=== PATIENT | female | born 1985 | race Two or more races ===

== ENCOUNTER 2016-09-16 13:56 | Emergency (ER) | payer OTHER ==
[~2016-09-16] VITALS: Ht 167.6 cm; Wt 64.0 kg
[2016-09-16 14:11] VITALS: BP 118/67
--- NOTE | 2016-09-16 14:40 | PHYS DOC ---
Past Medical History Past Medical History: No Pertinent History Past Surgical History: No Surgical History Additional Information: nonsmoker Alcohol Use: None Drug Use: None Adult General Chief Complaint Chief Complaint: Congestion HPI HPI Patient is a 30 year old female who presents with cough and congestion for 5 days. She has sore throat and a hoarse voice. She reports nasal congestion and subjective fever at home. She denies difficulty breathing, otalgia, or abdominal pain. She is 25 weeks . She reports positive movement. She has not taken any quty-zus-xeozuxe medications for her symptoms. She does not have a PCP. She has been seen at the [facility] for care but requests referral to an OB doctor at this hospital. The patient does not speak Green[place]ic. Her brother translates. Review of Systems Review of Systems Constitutional: Reports subjective fever. Eyes: Denies change in visual acuity, redness, or eye pain. [] HENT: Denies ear pain. Reports sore throat and nasal congestion. Respiratory: Denies shortness of breath. Reports nonproductive cough. Cardiovascular: Denies chest pain, palpitations or edema. [] GI: Denies abdominal pain, nausea, vomiting, bloody stools or diarrhea. [] : Denies dysuria, hematuria or urinary frequency. [] Musculoskeletal: Denies back pain or joint pain. [] Integument: Denies rash or skin lesions. [] Neurologic: Denies headache, focal weakness or sensory changes. [] Endocrine: Denies polyuria or polydipsia. [] Psych: Denies anxiety or depression. [] All systems reviewed and negative unless otherwise stated in the HPI. Physical Exam Physical Exam Constitutional: Well developed, well nourished, no acute distress, non-toxic appearance. [] HENT: Normocephalic, atraumatic, bilateral external ears normal, oropharynx moist, no oral exudates, nose normal. Bilateral TMs are without erythema or bulging. There is mild posterior pharyngeal erythema without tonsillar edema. There is purulent nasal drainage in the posterior pharynx. Bilateral nasal turbinates are mildly swollen and erythematous. Eyes: PERRLA, EOMI, conjunctiva normal, no discharge. [] Neck: Normal range of motion, no tenderness, supple, no stridor. [] Cardiovascular: Heart rate regular rhythm, no murmur [] Lungs & Thorax: Bilateral breath sounds clear to auscultation without wheezes, rales, or rhonchi. Skin: Warm, dry, no erythema, no rash. [] Neurologic: Alert and oriented X 3, normal motor function, normal sensory function, no focal deficits noted. [] Psychologic: Affect normal, judgement normal, mood normal. [] Current Patient Data Vital Signs Vital Signs Date Time Temp Pulse Resp B/P Pulse Ox O2 Delivery O2 Flow Rate FiO2 09/16/16 14:11 98.2 91 16 98 Room Air 98.2 Lab Values Rapid strep negative EKG EKG [] Radiology/Procedures Radiology/Procedures [] Course & Med Decision Making Course & Med Decision Making Pertinent Labs and Imaging studies reviewed. (See chart for details) [] Dragon Disclaimer Dragon Disclaimer This electronic medical record was generated, in whole or in part, using a voice recognition dictation system. Departure Departure Impression: Primary Impression: URI (upper respiratory infection) Disposition: HOME, SELF-CARE Condition: STABLE Referrals: MARY PICHARDO Jr, MD Patient Instructions: Medicines During , and Medications, Mava-fj-Mnor, Upper Respiratory Infection, Adult, Irxj-qk-Zlew Additional Instructions: Your strep test was negative today. You appear to have a viral upper respiratory infection. Please use the prescribed nasal spray daily to help with your symptoms. Please follow up with the OB doctor listed below for care. Return to the emergency department if you have high fever, difficulty breathing , difficulty swallowing, abdominal pain, vaginal bleeding, or other new or concerning symptoms. Scripts Fluticasone Propionate (Flonase Allergy Relief)9.9 Ml [place].susp2 Sprays NS DAILY #1 BOTTLE Prov:LESLIE FAM 09/16/16 Problem Qualifiers Primary Impression: URI (upper respiratory infection) URI type: unspecified viral URI Qualified Code: J06.9 - Acute upper respiratory infection, unspecified LESLIE FAM Sep 16, 2016 14:40
[2016-09-16] MEDS ORDERED: FLUT9.9S NS (14:58)
[2016-09-17 08:40] LABS: NEGATIVE OBC STREP NEG; POSITIVE OBC STREP POS
== END 2016-09-16 15:15 | disposition home or self-care (01) ==
LOC: ER 13:56
DX: O99.512 Diseases of the respiratory system complicating pregnancy, second trimester (principal); J06.9 Acute upper respiratory infection, unspecified; Z3A.25 25 weeks gestation of pregnancy
CPT/HCPCS: 87070; 87880; 99283

== ENCOUNTER 2016-11-05 03:09 | Inpatient (IN) | payer OTHER ==
[~2016-11-05] VITALS: Ht 160 cm; Wt 66.2 kg
[2016-11-05] VITALS (7 sets, daily range): BP systolic 100–123; BP diastolic 56–75
[~2016-11-05 03:09] MED LIST: FLUT9.9S NS
[2016-11-05] MEDS ORDERED: IV RINGERS,LACTATED 1000ML 1,000 ML IV SCH ×2 (03:30→03:36)
[2016-11-05] MEDS ORDERED: ONDANSETRON PF 4 MG/2 ML VIAL. IV PRN (03:45)
[2016-11-05] MEDS ORDERED: FENTANYL PF 100 MCG/2 ML VIAL. IV PRN (03:45)
[2016-11-05] MEDS ORDERED: LIDOCAINE 1% PF 30 ML VIAL. INJ PRN (03:45)
[2016-11-05] MEDS ORDERED: TERBUTALINE 1 MG/ML VIAL. SQ PRN (03:45)
[2016-11-05] MEDS ORDERED: 0.9 % SODIUM CHLORIDE 10 ML DISP.SYRIN. IV PRN ×3 (03:45→15:45)
[2016-11-05] MEDS ORDERED: IBUPROFEN 600 MG TABLET. PO PRN (03:45)
[2016-11-05 05:15] LABS: HEMATOCRIT 36.1 % (36.0-47.0); HEMOGLOBIN 11.7 g/dL (12.0-15.5); RED CELL DISTRIBUTION WIDTH 13.2 % (11.5-14.5)
[2016-11-05] MEDS: BUTORPHANOL 2 MG VIAL. IV PRN ×2 (05:50→13:36)
[2016-11-05] MEDS: OXYTOCIN 30 UNIT/500 ML PREMIX 500 ML IV PRN ×5 (09:22→23:21)
[2016-11-05] MEDS ORDERED: METHYLERGONOVINE MALEATE 0.2 MG/ML VIAL. IM ONE ×4 (09:26→12:29)
[2016-11-05] MEDS ORDERED: DIPHENHYDRAMINE HCL 25 MG CAPSULE PO PRN ×2 (10:15→15:45)
[2016-11-05] MEDS ORDERED: PHENYLEPH/MINERAL OIL/PETROLAT RECTAL OINTMENT 28GM TUBE. RC PRN ×2 (10:15→15:45)
[2016-11-05] MEDS ORDERED: ZOLPIDEM 5 MG TABLET. PO PRN ×2 (10:15→15:45)
[2016-11-05] MEDS ORDERED: OXYCODONE/APAP 5/325 TABLET. PO PRN ×2 (10:15→15:45)
[2016-11-05] MEDS ORDERED: ACETAMINOPHEN 325 MG TABLET. PO PRN ×2 (10:15→15:45)
[2016-11-05] MEDS ORDERED: SIMETHICONE 80 MG TAB.CHEW PO PRN ×2 (10:15→15:45)
[2016-11-05] MEDS ORDERED: MAG HYDROX/ALUMINUM HYD/SIMETH 30 ML ORAL.SUSP PO PRN ×2 (10:15→15:45)
[2016-11-05] MEDS ORDERED: DOCUSATE SODIUM 100 MG CAPSULE PO PRN ×2 (10:15→15:45)
[2016-11-05] MEDS ORDERED: OXYTOCIN 30 UNIT/500 ML PREMIX 500 ML IV PRN ×2 (10:15→15:45)
[2016-11-05] MEDS ORDERED: HYDROCORTISONE 1% TOPICAL OINTMENT 30GM TUBE. TP PRN ×2 (10:15→15:45)
[2016-11-05] MEDS ORDERED: BENZOCAINE 20% TOPICAL AEROSOL SPRAY 57GM CAN. TP PRN ×2 (10:15→15:45)
[2016-11-05] MEDS ORDERED: MAGNESIUM HYDROXIDE 2,400 MG/30 ML ORAL.SUSP. PO PRN ×2 (10:15→15:45)
[2016-11-05] MEDS ORDERED: MMR per PROTOCOL. MC PRN ×2 (10:15→15:45)
--- NOTE | 2016-11-05 10:15 | HP ---
ADMIT DATE: 11/05/2016 CHIEF COMPLAINT AND HISTORY OF PRESENT ILLNESS: This patient is a 31-year-old female who is a primigravida, EDC 11/11/2016 is a ____ patient and seen by ____ one time and comes in to the hospital with a history of having contractions and also patient in active labor. At the time of admission to the hospital, her cervix was dilated to about 3-4 cm and vertex presenting, membranes intact. The patient in labor. OBJECTIVE: VITAL SIGNS: Stable. HEAD, EYES, EARS, NOSE AND THROAT: Exam within normal limits. LUNGS: Clear. HEART: Sounds regular sinus rhythm. ABDOMEN: A 39 weeks size uterus. heart tones of 148 per minute, vertex presenting. PELVIC: Shows cervix 3-4 cm dilated, membranes intact and the patient in labor. DIAGNOSIS: Primigravida 39 weeks in active labor. PLAN: Vaginal delivery. SIOBHAN ARMSTRONG MD DR: DANIELA/clemente JOB#: [id number] / [id number]
--- NOTE | 2016-11-05 10:35 | LDN ---
DATE OF DELIVERY: This patient is a 31-year-old patient, who is admitted to the hospital with a history of having contractions. She is a 1, para 0, EDC 11/11/2016, was seen by ____ one time in the office for care and she did have active labor. At the time of admission to the hospital, she was dilated to about 2-4 cm and membranes intact and she did have a normal course of labor and got to complete dilatation, had a spontaneous vaginal delivery of a live female weighing 6 pounds 13 ounces, delivered on 11/05/2016 at 9:24 a.m. with score of 8 and 8. The baby did have cord around the neck, which was very tight and this was cut before delivery of the head and also, the baby had cord around the body, which was released. Cord blood was taken. Placenta removed spontaneously. She did have some bleeding after removal of the placenta and she was given Pitocin as well as Methergine to contract the uterus, and she did have a midline episiotomy. This was sutured with 2-0 chromic catgut sutures without any problem, and the mother tolerated the delivery well. No complications. ESTIMATED BLOOD LOSS: 400 mL. Baby is referred to medical technologist clinical for further care and treatment. SIOBHAN ARMSTRONG MD DR: DANIELA/clemente JOB#: [id number] / [id number]
[2016-11-05] MEDS: IBUPROFEN 600 MG TABLET. PO SCH (11:57)
[2016-11-05 13:28] LABS: HEMATOCRIT 30.4 % (36.0-47.0); HEMOGLOBIN 9.9 g/dL (12.0-15.5); RED BLOOD COUNT 3.35 x10^6/uL (3.50-5.40); RED CELL DISTRIBUTION WIDTH 13.5 % (11.5-14.5)
[2016-11-05] MEDS ORDERED: IV NORMAL SALINE 1000ML BAG 1,000 ML IV ONE (14:00)
[2016-11-05] MEDS ORDERED: DEXAMETHASONE SOD PHOS 20 MG/5 ML VIAL. ONE (14:28)
[2016-11-05] MEDS ORDERED: PROPOFOL 20 ML IV ONE (14:28)
[2016-11-05] MEDS ORDERED: ONDANSETRON PF 4 MG/2 ML VIAL. ONE (14:28)
[2016-11-05] MEDS ORDERED: FAMOTIDINE 20 MG/2 ML VIAL ONE (14:28)
[2016-11-05] MEDS ORDERED: LIDOCAINE 2% 100 MG/5 ML DISP.SYRIN. ONE (14:28)
[2016-11-05] MEDS ORDERED: FENTANYL PF 100 MCG/2 ML VIAL. ONE (14:29)
[2016-11-05] MEDS ORDERED: SUCCINYLCHOLINE 200 MG/10 ML VIAL. ONE (14:29)
[2016-11-05] MEDS ORDERED: MISOPROSTOL 200 MCG TABLET ONE (14:46)
[2016-11-05] MEDS ORDERED: OXYTOCIN 10 UNIT/ML VIAL. ONE ×2 (14:46→15:50)
[2016-11-05] MEDS ORDERED: CEFAZOLIN 2GM PREMIX 50 ML IV ONE ×2 (14:57→15:09)
[2016-11-05] MEDS ORDERED: MISOPROSTOL 200 MCG TABLET VG ONE (15:10)
[2016-11-05] MEDS ORDERED: PHENYLEPHRINE in 0.9% NACL PF 1 MG/10 ML DISP.SYRIN. IV ONE (15:11)
[2016-11-05] MEDS ORDERED: SEVOFLURANE 31 TO 60 MINUTES. IH ONE (15:17)
[2016-11-05] MEDS ORDERED: IV DEXTROSE 5%-LACT RINGERS 1,000 ML IV SCH (16:00)
[2016-11-05] MEDS ORDERED: IBUPROFEN 600 MG TABLET. PO SCH (18:00)
--- NOTE | 2016-11-05 19:37 | OP ---
DATE OF SURGERY: 11/05/2016 PREOPERATIVE DIAGNOSIS: bleeding. POSTOPERATIVE DIAGNOSIS: bleeding. OPERATION PERFORMED: D and C, suction curettage. DESCRIPTION OF PROCEDURE: The patient was taken to the operating room. Under general anesthesia, she was placed in a dorsal lithotomy position. Perineum is prepped and draped in the usual manner. Weighted speculum inserted in the posterior vaginal wall. Anterior lip of the cervix held with a tenaculum and ring forceps is used to remove all the clots, and a medium-sized curette is also used to curette the endometrial cavity and number size 8 suction-tip cannula is used to suction the uterus. All the curettings obtained are ____ for pathological examination. At the end of the curettage, speculum tenaculum is removed. The patient was sent to the recovery room in good condition. No complications encountered at the time of the procedure. Estimated blood loss about 200 mL. She did receive 20 units of Pitocin during the time of the D and C and also 800 ____ Cytotec inserted into the uterus for hemostasis. The patient tolerated the procedure. No complications. SIOBHAN ARMSTRONG MD DR: DANIELA/clemente JOB#: [id number] / [id number]
[2016-11-06] VITALS (14 sets, daily range): BP systolic 89–103; BP diastolic 42–59
[2016-11-06] MEDS: FERROUS SULFATE 325 MG TABLET PO SCH (08:00)
[2016-11-06] MEDS ORDERED: FERROUS SULFATE 325 MG TABLET PO SCH (08:00)
--- NOTE | 2016-11-06 12:11 | PDOC ---
SUBJECTIVE Subjective Patient feeling better No vaginal bleeding OBJECTIVE Objective Hg 6 Patient looks pale Vital Signs Vital Signs Date Time Temp Pulse Resp B/P Pulse Ox O2 Delivery O2 Flow Rate FiO2 11/06/16 11:50 98.4 79 18 89/43 98.4 11/06/16 06:20 98.3 70 18 91/42 98.3 11/06/16 02:30 98.4 98.4 11/05/16 23:11 100.2 85 16 100/69 100.2 11/05/16 18:42 70 18 108/63 11/05/16 18:05 72 18 104/56 11/05/16 17:45 87 120/66 11/05/16 17:20 84 20 115/70 11/05/16 17:05 99.1 67 20 115/70 100 99.1 11/05/16 16:41 100.4 66 20 132/57 99 Room Air 100.4 11/05/16 16:26 100.4 60 18 117/61 99 Room Air 100.4 11/05/16 16:11 99.2 60 18 116/66 100 Simple Mask 6 99.2 11/05/16 15:56 99.2 64 18 103/54 100 Simple Mask 6 99.2 11/05/16 15:42 99.2 69 18 110/59 100 Simple Mask 6 99.2 11/05/16 15:42 Mask 6 11/05/16 13:36 18 I & O Intake and Output 11/06/16 07:00 Intake Total 1300 ml Balance 1300 ml Intake Oral 300 ml Other 1000 ml # Voids 3 # Bowel Movements 1 PHYSICAL EXAM Physical Exam Abdomen soft uterus firm Lochia normal ASSESSMENT/PLAN Assessment/Plan Post bleeding Will give her 2 units of Packed cells BT today Problems: COMMENT Lab Laboratory Tests Test 11/05/16 13:15 11/06/16 05:10 White Blood Count 20.0x10^3/uL (4.0-11.0) Red Blood Count 3.35x10^6/uL (3.50-5.40) Hemoglobin 9.9g/dL (12.0-15.5) Hematocrit 30.4% (36.0-47.0) 18.3% (36.0-47.0) Mean Corpuscular Volume 91fL (79-100) Mean Corpuscular Hemoglobin 30pg (25-35) Mean Corpuscular Hemoglobin Concent 33g/dL (31-37) Red Cell Distribution Width 13.5% (11.5-14.5) Platelet Count 144x10^3/uL (140-400) SIOBHAN ARMSTRONG MD Nov 06, 2016 12:11
[2016-11-07 05:58] VITALS: BP 94/57
[2016-11-07] MEDS: FERROUS SULFATE 325 MG TABLET PO SCH (08:36)
[2016-11-07] MEDS: IBUPROFEN 600 MG TABLET. PO SCH (08:36)
--- NOTE | 2016-11-07 08:54 | PDOC ---
SUBJECTIVE Subjective Patient doing fine OBJECTIVE Objective Abdomen soft Uterus firm Received 2 units of BT Vital Signs Vital Signs Date Time Temp Pulse Resp B/P Pulse Ox O2 Delivery O2 Flow Rate FiO2 11/07/16 05:58 97.9 91 20 94/57 98 Room Air 97.9 11/06/16 23:10 98.5 99 16 97/58 98.5 11/06/16 17:05 98.6 84 20 100/55 100 Room Air 98.6 11/06/16 16:05 98.1 78 16 97/53 98.1 11/06/16 14:45 98.7 20 18 101/56 98.7 11/06/16 14:20 98.6 76 18 102/59 98.6 11/06/16 14:03 99.1 87 20 103/54 99.1 11/06/16 14:00 87 20 103/54 11/06/16 13:40 99.0 75 20 102/51 99.0 11/06/16 13:02 98.4 20 18 100/56 98.4 11/06/16 12:30 98.2 70 18 101/51 98.2 11/06/16 12:05 97.7 73 20 96/49 97.7 11/06/16 11:50 98.4 79 18 89/43 98.4 11/06/16 11:30 98.4 79 18 89/43 98.4 I & O Intake and Output 11/07/16 07:00 Intake Total 650 ml Balance 650 ml Blood Product IV Normal Saline Flush 650 ml PHYSICAL EXAM Physical Exam No vaginal bleeding Doing ok ASSESSMENT/PLAN Assessment/Plan Will dismiss to home Return to office in 2 weeks Problems: COMMENT Lab Laboratory Tests Test 11/06/16 20:48 Hematocrit 25.7% (36.0-47.0) SIOBHAN ARMSTRONG MD Nov 07, 2016 08:54
[2016-11-07 11:45] VITALS: BP 100/56
--- NOTE | 2016-11-07 14:57 | PATHOLOGY ---
PATHOLOGY REPORT * * * * * * * * FINAL DIAGNOSIS: Uterine contents, suction D and C: - Blood clot containing segments of endocervical tissue showing focal marked active chronic inflammation, squamous metaplasia, and endocervical microglandular hyperplasia. COMMENT: The entire specimen is submitted for histologic evaluation. There are no chorionic villi identified. (JPM:; d/t: 11/07/16) REPORT ELECTRONICALLY SIGNED BY: Isaias Franco M.D. DATE/TIME: 11/07/2016 14:52 * * * * * * * * GROSS PATHOLOGY: The specimen is received in formalin labeled "Nany Galvin, retained placental tissue". Received is a moderate amount of red-brown to light velez soft tissue admixed with blood coagulum measuring 6.6 x 2.7 x 0.6 cm in aggregate dimensions. or embryonic tissue is not grossly identified. Vesicular structures are absent. The specimen is submitted entirely in cassettes A1 through A6. (CAA; 11/06/2016) INITIAL CPT CODE(S): A; 51504 Professional services performed [place] [facility] [address] Technical services performed by [facility] at [address] [place] [address] [address] [address]. SPECIMEN(S) RECEIVED: A.Retained placental tissues CLINICAL HISTORY: Retained placenta PATIENT: NANY GALVIN /AGE: 209/21/1985 (Age: 31) PATIENT #: [id number] ALT CASE #: SPECIMEN COLLECTION DATE: 11/05/2016 SPECIMEN RECEIVED DATE: 11/06/2016 [facility] - [address] [place] [address] - PHONE: [phone] * * * END OF REPORT * * *
== END 2016-11-07 12:45 | disposition home or self-care (01) | DRG 774 ==
LOC: 3 SO LND 03:09 → OBSVTOIN 03:09 → 3 NORTH 16:43
PROVIDERS: ADMIT Obstetrics & Gynecology; ATTEND Obstetrics & Gynecology
PROC: 0W8NXZZ Division of Female Perineum, External Approach (ICD-10-PCS; 2016-11-05)
PROC: 10D07Z8 Extraction of Products of Conception, Other, Via Natural or Artificial Opening (ICD-10-PCS; 2016-11-05)
PROC: 10E0XZZ Delivery of Products of Conception, External Approach (ICD-10-PCS; principal; 2016-11-05 15:00)
PROC: 30233N1 Transfusion of Nonautologous Red Blood Cells into Peripheral Vein, Percutaneous Approach (ICD-10-PCS; 2016-11-06)
DX: O69.81X0 Labor and delivery complicated by cord around neck, without compression, not applicable or unspecified (principal); O72.1 Other immediate postpartum hemorrhage; Z37.0 Single live birth; Z3A.39 39 weeks gestation of pregnancy
CPT/HCPCS: 36415; 85014; 85027; 86593; 86850; 86900; 86901; 86920; 88305; J0330; J0690; J1100; J2210; J2370; J2405; J2590; J2704; J3010; J7030; J7120; P9016; S0028

== ENCOUNTER → 2018-07-25 | Outpatient (CLI) | payer OTHER ==
--- NOTE | 2018-07-26 10:19 | KCIC ---
OB ultrasound greater than 14 weeks 07/25/2018 Clinical History: survey. Technique: A real-time ultrasound examination of the gravid uterus was performed. Multiple images were obtained. Findings: No previous studies are available for comparison. There is a single living IUP. The fetus is in a cephalic position. cardiac and somatic activity is seen. The heart rate is 143 beats per minutes. The maternal cervix is closed. It measures 5.1 cm in length. The placenta is anterior. No abnormality is seen. The amniotic fluid volume is within normal limits. Neither maternal ovary is visualized. The following measurements were obtained: BPD 5.65cm 23 weeks to days HC 21.62 cm 23weeks 5 days AC 19.17 cm 23weeks 6 days FL 4.13 cm 23 weeks 3 days The estimated gestational age by ultrasound is 23 weeks 4 days plus or minus a standard deviation of 10 days. The estimated date of delivery by ultrasound is 11/17/2018. No abnormality is seen. Specifically the stomach, bladder, kidneys, 3 vessel cord and cord insertion, four-chamber heart, cisterna magna, cerebellum, nose/mouth, spine and extremities are well-visualized and within normal limits. Impression: Single living IUP with an estimated gestational age by ultrasound of 23 weeks 4 days +/- a standard deviation of 10 days. The estimated date of delivery by ultrasound is 11/17/2018. Electronically signed by: Delmar Esparza MD (07/26/2018 10:15 AM) [facility]
== END | disposition home or self-care (01) ==
LOC: KCIC US 10:05
PROVIDERS: ATTEND Obstetrics & Gynecology
DX: Z34.82 Encounter for supervision of other normal pregnancy, second trimester (principal); Z3A.23 23 weeks gestation of pregnancy
CPT/HCPCS: 76805

== ENCOUNTER 2018-11-14 01:44 | Inpatient (IN) | payer OTHER ==
[~2018-11-14] VITALS: Ht 162.6 cm; Wt 66.2 kg
[2018-11-14] MEDS ORDERED: IV RINGERS,LACTATED 1000ML 1,000 ML IV SCH ×2 (02:00→02:15)
[2018-11-14] MEDS ORDERED: ACETAMINOPHEN 500 MG TABLET PO PRN (02:00)
[2018-11-14 02:14] VITALS: BP 117/67
[2018-11-14] MEDS ORDERED: TERBUTALINE 1 MG/ML VIAL. SQ PRN (02:15)
[2018-11-14] MEDS ORDERED: 0.9 % SODIUM CHLORIDE 10 ML DISP.SYRIN. IV PRN ×2 (02:15→04:15)
[2018-11-14] MEDS ORDERED: IBUPROFEN 400 MG TABLET. PO PRN (02:15)
[2018-11-14] MEDS ORDERED: fentaNYL PF VIAL 100 MCG/2 ML VIAL IV PRN ×2 (02:15)
[2018-11-14] MEDS ORDERED: OXYTOCIN 30 UNIT/500 ML PREMIX 500 ML IV PRN ×3 (02:15→04:15)
[2018-11-14] MEDS ORDERED: ONDANSETRON PF 4 MG/2 ML VIAL. IV PRN (02:15)
[2018-11-14] MEDS ORDERED: LIDOCAINE 1% PF 30 ML VIAL. INJ PRN (02:15)
[2018-11-14] MEDS ORDERED: PENICILLIN G K 5,000,000 UNIT in IV DEXTROSE 5% 100ML 100 ML IV ONE (02:30)
[2018-11-14 02:35] LABS: BASO # 0.1 x10^3/uL (0.0-0.2); BASO % 1 % (0-3); EOS # 0.1 x10^3/uL (0.0-0.7); EOS % 1 % (0-3); HEMATOCRIT 38.6 % (36.0-47.0); HEMOGLOBIN 13.1 g/dL (12.0-15.5); LYMPH # 1.9 x10^3/uL (1.0-4.8); LYMPH % 18 % (24-48); MEAN CORPUSCULAR HEMOGLOBIN 31 pg (25-35); MEAN CORPUSCULAR HGB CONC 34 g/dL (31-37); MEAN CORPUSCULAR VOLUME 92 fL (79-100); MONO # 0.9 x10^3/uL (0.0-1.1); MONO % 9 % (0-9); NEUT # 7.7 x10^3uL (1.8-7.7); NEUT % 73 % (31-73); PLATELET COUNT 189 x10^3/uL (140-400); RED BLOOD COUNT 4.17 x10^6/uL (3.50-5.40); RED CELL DISTRIBUTION WIDTH 12.8 % (11.5-14.5); WHITE BLOOD COUNT 10.6 x10^3/uL (4.0-11.0)
[2018-11-14] MEDS ORDERED: OXYTOCIN PREMIX 30 UNIT/500 ML BAG. IV ONE (03:25)
--- NOTE | 2018-11-14 04:03 | PDOC1 ---
OB - History Hx of Present Care: Good Care Ultrasounds: Normal mid trimester US Obstetrical Complications: None Medical Complications: None Past Family/Social History * Past Medical, Surgical, Family and Obstetric Histories reviewed from chart. Rubella: Immune RPR/VDRL: Negative GBS Status: Positive HBsAG: Negative OB - Chief Complaint & HPI Date of Admission: Date of Admission: Nov 14, 2018 at 01:44 Chief Complaint/History : 2 Para: 1 EGA: 39 Reason for admission: active labor Admission Nurse Assessment Rev: Yes OB - Admission Exam Physical Exam Vitals: VS - Last 72 Hours, by Label Date Time Temp Pulse Resp B/P (MAP) Pulse Ox O2 Delivery O2 Flow Rate FiO2 11/14/18 02:14 97.9 72 18 117/67 (84) Room Air 97.9 HEENT: Normal Heart: Regular Rate Lungs: Clear Abdomen: Gravid, Non tender, Soft Extremities: Edema Reflexes: Normal Cervical Dilatation: 5cm Effacement: 100% Station: -1 Membranes: Intact Heart Rate: Normal Accelerations: Accelerations Present Decelerations: No decelerations Contractions on Admission: < 5 Minutes Apart Intensity: Firm Text A: 39 wks IUP Active labor P: Admit for labor management. MARY PICHARDO Jr, MD Nov 14, 2018 04:03
--- NOTE | 2018-11-14 04:05 | PDOC ---
VAGINAL DELIVERY DATE DATE: 11/14/18 TIME: 04:03 : 2 Para: 2 EGA: 39 VAGINAL DELIVERY: VTX VACCUM ASSISTED: No PLACENTA: Spontaneous 8/9 SEX: Male WEIGHT Weight [ 6 lbs. 11 oz.] Nuchal Cord: No Amniotic Fluid: Clear PAIN: Natural EPISIOTOMY: No EXTENSION: Yes (2nd degree midline laceration) REPAIRED WITH 2-0 vicryl EBL 400 ml COMPLICATIONS none CONDITION pt. stable Signs of Intrauterine Infectio: None Shoulder Dystocia: No MARY PICHARDO Jr, MD Nov 14, 2018 04:05
[2018-11-14] MEDS ORDERED: PHENYLEPH/MINERAL OIL/PETROLAT RECTAL OINTMENT 28GM TUBE. RC PRN (04:15)
[2018-11-14] MEDS ORDERED: ZOLPIDEM 5 MG TABLET. PO PRN (04:15)
[2018-11-14] MEDS ORDERED: MMR per PROTOCOL. MC PRN (04:15)
[2018-11-14] MEDS ORDERED: SIMETHICONE 80 MG TAB.CHEW PO PRN (04:15)
[2018-11-14] MEDS ORDERED: diphenhydrAMINE HCL 25 MG CAPSULE PO PRN (04:15)
[2018-11-14] MEDS ORDERED: HYDROCORTISONE 1% TOPICAL OINTMENT 30GM TUBE. TP PRN (04:15)
[2018-11-14] MEDS ORDERED: MAGNESIUM HYDROXIDE 2,400 MG/30 ML ORAL.SUSP. PO PRN (04:15)
[2018-11-14] MEDS ORDERED: MAG HYDROX/ALUMINUM HYD/SIMETH 30 ML ORAL.SUSP PO PRN (04:15)
[2018-11-14] MEDS ORDERED: DOCUSATE SODIUM 100 MG CAPSULE. PO PRN (04:15)
[2018-11-14] MEDS ORDERED: BENZOCAINE 20% TOPICAL AEROSOL SPRAY 57GM CAN. TP PRN (04:15)
[2018-11-14] MEDS ORDERED: oxyCODONE/APAP 5/325 1 TAB TABLET PO PRN (04:15)
[2018-11-14] MEDS ORDERED: ACETAMINOPHEN 325 MG TABLET. PO PRN (04:15)
[2018-11-14] MEDS ORDERED: PENICILLIN G K 2,500,000 UNIT in IV DEXTROSE 5% 50 ML IV SCH (06:30)
[2018-11-14 07:10] VITALS: BP 112/72
[2018-11-14 11:41] VITALS: BP 95/60
[2018-11-14] MEDS: IBUPROFEN 400 MG TABLET. PO PRN (14:44)
[2018-11-14 16:55] VITALS: BP 96/64
[2018-11-14 20:00] VITALS: BP 96/56
[2018-11-15 00:34] VITALS: BP 102/60
[2018-11-15 04:46] LABS: BASO # 0.1 x10^3/uL (0.0-0.2); BASO % 1 % (0-3); EOS % 1 % (0-3); HEMATOCRIT 32.5 % (36.0-47.0); HEMOGLOBIN 11.2 g/dL (12.0-15.5); LYMPH # 2.3 x10^3/uL (1.0-4.8); LYMPH % 26 % (24-48); MEAN CORPUSCULAR HEMOGLOBIN 32 pg (25-35); MEAN CORPUSCULAR HGB CONC 34 g/dL (31-37); MEAN CORPUSCULAR VOLUME 93 fL (79-100); MONO # 0.9 x10^3/uL (0.0-1.1); MONO % 10 % (0-9); NEUT # 5.4 x10^3uL (1.8-7.7); NEUT % 62 % (31-73); PLATELET COUNT 162 x10^3/uL (140-400); RED CELL DISTRIBUTION WIDTH 12.9 % (11.5-14.5); WHITE BLOOD COUNT 8.6 x10^3/uL (4.0-11.0)
[2018-11-15 04:58] VITALS: BP 105/59
[2018-11-15] MEDS ORDERED: FERROUS SULFATE 325 MG TABLET. PO SCH (08:00)
[2018-11-15] MEDS: IBUPROFEN 400 MG TABLET. PO PRN ×2 (08:14→20:45)
--- NOTE | 2018-11-15 08:55 | PDOC ---
OB Progress Note Date of Service 11/15/18 Time of Evaluation 0850 Notes Pt. feeling well. No complaints. Lab Laboratory Tests Test 11/14/18 02:24 11/15/18 03:05 White Blood Count 10.6 x10^3/uL (4.0-11.0) 8.6 x10^3/uL (4.0-11.0) Red Blood Count 4.17 x10^6/uL (3.50-5.40) 3.50 x10^6/uL (3.50-5.40) Hemoglobin 13.1 g/dL (12.0-15.5) 11.2 g/dL (12.0-15.5) Hematocrit 38.6 % (36.0-47.0) 32.5 % (36.0-47.0) Mean Corpuscular Volume 92 fL (79-100) 93 fL (79-100) Mean Corpuscular Hemoglobin 31 pg (25-35) 32 pg (25-35) Mean Corpuscular Hemoglobin Concent 34 g/dL (31-37) 34 g/dL (31-37) Red Cell Distribution Width 12.8 % (11.5-14.5) 12.9 % (11.5-14.5) Platelet Count 189 x10^3/uL (140-400) 162 x10^3/uL (140-400) Neutrophils (%) (Auto) 73 % (31-73) 62 % (31-73) Lymphocytes (%) (Auto) 18 % (24-48) 26 % (24-48) Monocytes (%) (Auto) 9 % (0-9) 10 % (0-9) Eosinophils (%) (Auto) 1 % (0-3) 1 % (0-3) Basophils (%) (Auto) 1 % (0-3) 1 % (0-3) Neutrophils # (Auto) 7.7 x10^3uL (1.8-7.7) 5.4 x10^3uL (1.8-7.7) Lymphocytes # (Auto) 1.9 x10^3/uL (1.0-4.8) 2.3 x10^3/uL (1.0-4.8) Monocytes # (Auto) 0.9 x10^3/uL (0.0-1.1) 0.9 x10^3/uL (0.0-1.1) Eosinophils # (Auto) 0.1 x10^3/uL (0.0-0.7) 0.0 x10^3/uL (0.0-0.7) Basophils # (Auto) 0.1 x10^3/uL (0.0-0.2) 0.1 x10^3/uL (0.0-0.2) Treponema pallidum Antibody Nonreactive (Nonreactive) Laboratory Tests Test 11/15/18 03:05 White Blood Count 8.6 x10^3/uL (4.0-11.0) Red Blood Count 3.50 x10^6/uL (3.50-5.40) Hemoglobin 11.2 g/dL (12.0-15.5) Hematocrit 32.5 % (36.0-47.0) Mean Corpuscular Volume 93 fL (79-100) Mean Corpuscular Hemoglobin 32 pg (25-35) Mean Corpuscular Hemoglobin Concent 34 g/dL (31-37) Red Cell Distribution Width 12.9 % (11.5-14.5) Platelet Count 162 x10^3/uL (140-400) Neutrophils (%) (Auto) 62 % (31-73) Lymphocytes (%) (Auto) 26 % (24-48) Monocytes (%) (Auto) 10 % (0-9) Eosinophils (%) (Auto) 1 % (0-3) Basophils (%) (Auto) 1 % (0-3) Neutrophils # (Auto) 5.4 x10^3uL (1.8-7.7) Lymphocytes # (Auto) 2.3 x10^3/uL (1.0-4.8) Monocytes # (Auto) 0.9 x10^3/uL (0.0-1.1) Eosinophils # (Auto) 0.0 x10^3/uL (0.0-0.7) Basophils # (Auto) 0.1 x10^3/uL (0.0-0.2) Medications Current Medications Ringer's Solution 1,000 ml @ 125 mls/hr Q8H IV Last administered on 11/14/18at 02:32; Start 11/14/18 at 02:00; Stop 11/14/18 at 09:09; Status DC Acetaminophen (Tylenol) 1,000 mg PRN Q6HRS PRN PO PAIN, TEMP > 100.5'F; Start 11/14/18 at 02:00 Sodium Chloride (Normal Saline Flush) 3 ml QSHIFT PRN IV AFTER MEDS AND BLOOD DRAWS; Start 11/14/18 at 02:15; Stop 11/14/18 at 09:09; Status DC Ringer's Solution 1,000 ml @ 125 mls/hr Q8H IV ; Start 11/14/18 at 02:15; Stop 11/14/18 at 09:09; Status DC Fentanyl Citrate (Fentanyl 2ml Vial) 50 mcg PRN Q30MIN PRN IV Mild to moderate pain; Start 11/14/18 at 02:15; Stop 11/14/18 at 09:09; Status DC Fentanyl Citrate (Fentanyl 2ml Vial) 100 mcg PRN Q30MIN PRN IV Severe pain; Start 11/14/18 at 02:15; Stop 11/14/18 at 09:09; Status DC Ondansetron HCl (Zofran) 4 mg PRN Q4HRS PRN IV NAUSEA/VOMITING; Start 11/14/18 at 02:15; Stop 11/14/18 at 09:09; Status DC Terbutaline Sulfate (Brethine) 0.25 mg 1X PRN PRN SQ SEE COMMENTS; Start at 02:15; Stop 11/14/18 at 09:09; Status DC Lidocaine HCl (Xylocaine 1% Pf 30ml Vial) 30 ml 1X PRN PRN INJ SEE COMMENTS Last administered on 11/14/18at 03:48; Start 11/14/18 at 02:15; Stop 11/14/18 at 09:09; Status DC Oxytocin/Sodium Chloride 500 ml @ 0 mls/hr CONT PRN IV SEE I/O RECORD; Start at 02:15; Stop 11/14/18 at 09:09; Status DC Oxytocin/Sodium Chloride 500 ml @ 0 mls/hr CONT PRN PRN IV Post delivery bleeding Last administered on 11/14/18at 04:05; Start 11/14/18 at 02:15; Stop at 09:10; Status DC Ibuprofen (Motrin) 800 mg PRN Q6HRS PRN PO PAIN Last administered on 11/14/18at 05:33; Start 11/14/18 at 02:15; Stop 11/14/18 at 09:10; Status DC Penicillin G Potassium [id number] unit/Dextrose 100 ml @ 100 mls/hr 1X ONCE IV Last administered on 11/14/18at 02:30; Start 11/14/18 at 02:30; Stop 11/14/18 at 09:09; Status DC Penicillin G Potassium [id number] unit/Dextrose 50 ml @ 100 mls/hr Q4H IV ; Start 11/14/18 at 06:30; Stop 11/14/18 at 06:30; Status DC Sodium Chloride (Normal Saline Flush) 10 ml QSHIFT PRN IV AFTER MEDS AND BLOOD DRAWS; Start 11/14/18 at 04:15; Stop 11/14/18 at 09:10; Status DC Oxytocin/Sodium Chloride 500 ml @ 62.5 mls/hr CONT PRN IV SEE I/O RECORD; Start 11/14/18 at 04:15; Stop 11/14/18 at 09:10; Status DC Acetaminophen (Tylenol) 650 mg PRN Q6HRS PRN PO MILD PAIN / TEMP; Start at 04:15 Ibuprofen (Motrin) 800 mg PRN Q8HRS PRN PO INFLAMMATION/PAIN PREVENTION Last administered on 11/15/18at 08:14; Start 11/14/18 at 04:15 Docusate Sodium (Colace) 100 mg PRN BID PRN PO CONSTIPATION; Start 11/14/18 at 04:15 Magnesium Hydroxide (Milk Of Magnesia) 2,400 mg PRN DAILY PRN PO CONSTIPATION; Start 11/14/18 at 04:15 Al Hydroxide/Mg Hydroxide (Mylanta Plus Xs) 30 ml PRN Q4HRS PRN PO HEARTBURN / GAS; Start 11/14/18 at 04:15 Simethicone (Gas-X) 80 mg PRN AFTMEALHC PRN PO GAS / BLOATING; Start 11/14/18 at 04:15 Diphenhydramine HCl (Benadryl) 25 mg PRN Q6HRS PRN PO ITCHING; Start 11/14/18 at 04:15 Benzocaine (Americaine) 1 spray PRN QID PRN TP TOPICAL PAIN Last administered on 11/14/18at 05:33; Start 11/14/18 at 04:15 Phenyleph/Shark Oil/Min Oil/Petrol (Preparation H) 1 darshan PRN QID PRN RC RECTAL PAIN; Start 11/14/18 at 04:15 Hydrocortisone (Cortaid) 1 darshan PRN QID PRN TP PERINEAL PAIN; Start 11/14/18 at 04:15 Ferrous Sulfate (Feosol) 325 mg BIDWMEALS PO ; Start 11/15/18 at 08:00 Zolpidem Tartrate (Ambien) 5 mg PRN QHS PRN PO INSOMNIA, MAY REPEAT X1; Start 11/14/18 at 04:15 Info (Do NOT chart on this placeholder) 1 ea 1X PRN PRN MC SEE COMMENTS; Start 11/14/18 at 04:15; Stop 11/14/18 at 09:10; Status DC Info (Do NOT chart on this placeholder) 1 ea 1X PRN PRN MC SEE COMMENTS; Start 11/14/18 at 04:15; Stop 11/14/18 at 09:10; Status DC Oxycodone/ Acetaminophen (Percocet 5/325) 2 tab PRN Q4HRS PRN PO MODERATE PAIN , SEVERE PAIN; Start 11/14/18 at 04:15 Oxytocin/Sodium Chloride (Oxytocin Premix Infusion) 30 unit STK-MED ONCE IV ; Start 11/14/18 at 03:25; Stop 11/14/18 at 09:11; Status DC Active Scripts Active Flonase Allergy Relief (Fluticasone Propionate) 9.9 Ml [place].susp 2 Sprays NS DAILY Exam Abd: soft, non tender, fundus firm Assessment PPD#1 s/p Plan of Care: Continue current Tx, MARY Brito Jr, MD Nov 15, 2018 08:55
[2018-11-15 13:15] VITALS: BP 102/62
[2018-11-15 16:45] VITALS: BP 99/66
[2018-11-15 21:50] VITALS: BP 99/60
[2018-11-16 06:00] VITALS: BP 100/64
[2018-11-16] MEDS: IBUPROFEN 400 MG TABLET. PO PRN (09:11)
[2018-11-16 10:20] VITALS: BP 104/62
[2018-11-16 14:32] VITALS: BP 107/63
--- NOTE | 2018-11-16 16:51 | PDOC3 ---
OB DISCHARGE SUMMARY DATE OF ADMISSION: 11/14/18 DATE OF DISCHARGE: 11/16/18 REASON FOR ADMISSION: Onset of labor INTRAPARTUM PROCEDURES: Spontanous Vag Deliv DISCHARGE DIAGNOSIS: Term Delivered DISCHARGE INFORMATION: Activity (ad charis), Diet (regular), Instructions (pelvic rest x 6 wks) HOSPITAL COURSE Term gestation delivered without complications. MARY PICHARDO Jr, MD Nov 16, 2018 16:51
[2018-11-16] MEDS ORDERED: PNV1TABL25 PO (16:54)
[2018-11-16] MEDS ORDERED: IBUP-1027 PO (16:54)
--- NOTE | 2018-11-16 16:54 | DISCH ---
DISCHARGE INSTRUCTIONS Condition on Discharge Condition on Discharge: Stable Activity After Discharge Activity Instructions for Disc: Activity as tolerated, Other, see below Lifting Instructions after Dis: No heavy lifting, No pulling or pushing, Do not lift >10 pounds Driving Instructions after Dis: Do not drive today Weight Bearing Status after Di: No restrictions Diet after Discharge Diet after Discharge: Regular Contacting the DRTiffanie after DC Call your doctor for: If your condition worsens Follow-Up Follow up with: Dr. Pappas in 6 wks MARY PAPPAS Jr, MD Nov 16, 2018 16:54
== END 2018-11-16 17:10 | disposition home or self-care (01) | DRG 806 ==
LOC: OBSVTOIN 01:44 → 3 SO LND 01:44 → 3 NORTH 06:50
PROVIDERS: ADMIT Obstetrics & Gynecology; ATTEND Obstetrics & Gynecology
PROC: 10E0XZZ Delivery of Products of Conception, External Approach (ICD-10-PCS; principal; 2018-11-14)
PROC: 0KQM0ZZ Repair Perineum Muscle, Open Approach (ICD-10-PCS; 2018-11-14)
DX: O99.824 Streptococcus B carrier state complicating childbirth (principal); R71.0 Precipitous drop in hematocrit; Z37.0 Single live birth; O70.1 Second degree perineal laceration during delivery; Z3A.39 39 weeks gestation of pregnancy; O99.02 Anemia complicating childbirth
CPT/HCPCS: 36415; 85025; 86592; 86850; 86900; 86901; J2540; J2590; J7120

== ENCOUNTER 2020-02-16 09:16 | Observation (INO) | payer OTHER ==
[~2020-02-16] VITALS: Ht 152.4 cm; Wt 67.3 kg
[~2020-02-16 09:16] MED LIST changes: +IBUP-1027 PO; +PNV1TABL25 PO
[2020-02-16] MEDS ORDERED: IV RINGERS,LACTATED 1000ML 1,000 ML IV SCH (09:53)
[2020-02-16] MEDS ORDERED: 0.9 % SODIUM CHLORIDE 10 ML DISP.SYRIN. IV PRN ×2 (10:00→11:45)
[2020-02-16] MEDS ORDERED: ACETAMINOPHEN 325 MG TABLET. PO PRN ×2 (10:00→11:45)
[2020-02-16] MEDS ORDERED: LIDOCAINE 1% PF 30 ML VIAL. INJ PRN (10:00)
[2020-02-16] MEDS ORDERED: TERBUTALINE 1 MG/ML VIAL. SQ PRN (10:00)
[2020-02-16] MEDS ORDERED: fentaNYL PF VIAL 100 MCG/2 ML VIAL IVP PRN (10:00)
[2020-02-16] MEDS ORDERED: OXYTOCIN 30 UNIT/500 ML PREMIX 500 ML IV PRN ×3 (10:00→11:45)
[2020-02-16] MEDS ORDERED: ONDANSETRON PF 4 MG/2 ML VIAL. IVP PRN (10:00)
[2020-02-16] MEDS ORDERED: BUTORPHANOL 2 MG/ML VIAL. IVP PRN (10:00)
[2020-02-16 10:09] LABS: BILIRUBIN,URINE NEGATIVE (NEG); CLARITY,URINE CLEAR; COLOR,URINE YELLOW; NITRITE,URINE NEGATIVE (NEG); PROTEIN,URINE NEGATIVE (NEG-TRACE); UROBILINOGEN,URINE 0.2 mg/dL (0.2 mg/dL)
[2020-02-16 10:17] LABS: BARBITURATES NEG (NEG); BENZODIAZEPINES NEG (NEG); CANNABINOIDS NEG (NEG); COCAINE NEG (NEG); METHADONE NEG (NEG); OPIATES NEG (NEG); PHENCYCLIDINE NEG (NEG)
[2020-02-16 10:21] LABS: AMPHETAMINE/METHAMPHETAMINE NEG (NEG)
[2020-02-16 10:25] LABS: BASO # 0.1 x10^3/uL (0.0-0.2); BASO % 1 % (0-3); EOS % 0 % (0-3); HEMATOCRIT 37.4 % (36.0-47.0); HEMOGLOBIN 13.1 g/dL (12.0-15.5); LYMPH # 1.9 x10^3/uL (1.0-4.8); LYMPH % 20 % (24-48); MEAN CORPUSCULAR HEMOGLOBIN 32 pg (25-35); MEAN CORPUSCULAR HGB CONC 35 g/dL (31-37); MEAN CORPUSCULAR VOLUME 90 fL (79-100); MONO # 0.7 x10^3/uL (0.0-1.1); MONO % 7 % (0-9); NEUT # 7.2 x10^3/uL (1.8-7.7); NEUT % 72 % (31-73); PLATELET COUNT 165 x10^3/uL (140-400); RED BLOOD COUNT 4.14 x10^6/uL (3.50-5.40); RED CELL DISTRIBUTION WIDTH 13.1 % (11.5-14.5); WHITE BLOOD COUNT 9.9 x10^3/uL (4.0-11.0)
[2020-02-16] MEDS: fentaNYL PF VIAL 100 MCG/2 ML VIAL IVP PRN ×2 (10:31→11:31)
[2020-02-16] MEDS ORDERED: PENICILLIN G K 5,000,000 UNIT in IV DEXTROSE 5% 100ML 100 ML IV ONE (11:00)
[2020-02-16] MEDS ORDERED: OXYTOCIN PREMIX 30 UNIT/500 ML NS BAG. IV ONE (11:30)
--- NOTE | 2020-02-16 11:39 | PDOC1 ---
OB - History Hx of Present Care: Good Care Ultrasounds: Normal mid trimester US Obstetrical Complications: None Medical Complications: None Past Family/Social History * Past Medical, Surgical, Family and Obstetric Histories reviewed from chart. Rubella: Immune RPR/VDRL: Negative GBS Status: Positive HBsAG: Negative OB - Chief Complaint & HPI Date of Admission: Date of Admission: Feb 16, 2020 at 09:16 Chief Complaint/History : 3 Para: 2 EGA: 38 Reason for admission: active labor, rupture of membranes Admission Nurse Assessment Rev: Yes OB - Admission Exam Physical Exam Vitals: VS - Last 72 Hours, by Label Date Time Temp Pulse Resp B/P (MAP) Pulse Ox O2 Delivery O2 Flow Rate FiO2 02/16/20 11:31 Room Air HEENT: Normal Heart: Regular Rate Lungs: Clear Abdomen: Gravid, Non tender, Soft Extremities: Edema Reflexes: Normal Cervical Dilatation: 5cm Effacement: 75% Station: -2 Membranes: Ruptured Amniotic Fluid: Clear Heart Rate: Normal Accelerations: Accelerations Present Decelerations: No decelerations Contractions on Admission: < 5 Minutes Apart Intensity: Moderate Text A: 38 wks IUP SROM Active labor GBS positive P: Admit labor management. Start Pen G for GBS positive status. MARY PICHARDO Jr, MD Feb 16, 2020 11:38
--- NOTE | 2020-02-16 11:40 | PDOC ---
VAGINAL DELIVERY DATE DATE: 02/16/20 TIME: 11:39 : 3 Para: 3 EGA: 38 VAGINAL DELIVERY: VTX VACCUM ASSISTED: No PLACENTA: Spontaneous 8/9 SEX: Male WEIGHT Weight [7 lbs. 14 oz ] Nuchal Cord: No Amniotic Fluid: Clear PAIN: Natural EPISIOTOMY: No EXTENSION: Yes (2nd degree midline laceration) REPAIRED WITH 2-0 vicryl EBL 300 ml COMPLICATIONS none CONDITION pt. stable Signs of Intrauterine Infectio: None Shoulder Dystocia: No MARY PICHARDO Jr, MD Feb 16, 2020 11:40
[2020-02-16] MEDS ORDERED: diphenhydrAMINE HCL 25 MG CAPSULE PO PRN (11:45)
[2020-02-16] MEDS ORDERED: ZOLPIDEM 5 MG TABLET. PO PRN (11:45)
[2020-02-16] MEDS ORDERED: MAGNESIUM HYDROXIDE 2,400 MG/30 ML ORAL.SUSP. PO PRN (11:45)
[2020-02-16] MEDS ORDERED: MAG HYDROX/ALUMINUM HYD/SIMETH 30 ML ORAL.SUSP PO PRN (11:45)
[2020-02-16] MEDS ORDERED: PHENYLEPH/MINERAL OIL/PETROLAT RECTAL OINTMENT TUBE. RC PRN (11:45)
[2020-02-16] MEDS ORDERED: TDaP (Adacel) per PROTOCOL. MC PRN (11:45)
[2020-02-16] MEDS ORDERED: MMR per PROTOCOL. MC PRN (11:45)
[2020-02-16] MEDS ORDERED: SIMETHICONE 80 MG TAB.CHEW PO PRN (11:45)
[2020-02-16] MEDS ORDERED: DOCUSATE SODIUM 100 MG CAPSULE. PO PRN (11:45)
[2020-02-16] MEDS ORDERED: HYDROCORTISONE 1% TOPICAL OINTMENT 30GM TUBE. TP PRN (11:45)
[2020-02-16] MEDS ORDERED: BENZOCAINE 20% TOPICAL AEROSOL SPRAY 57GM CAN. TP PRN (11:45)
[2020-02-16] MEDS: IBUPROFEN 400 MG TABLET. PO PRN (13:03)
[2020-02-16] MEDS: oxyCODONE/APAP 5/325 1 TAB TABLET PO PRN ×2 (13:04→20:07)
[2020-02-16] MEDS ORDERED: PENICILLIN G K 2,500,000 UNIT in IV DEXTROSE 5% 50 ML IV SCH (15:00)
[2020-02-16 17:00] VITALS: BP 96/59
[2020-02-16] MEDS ORDERED: FERROUS SULFATE 325 MG TABLET. PO SCH (17:00)
[2020-02-16 21:17] VITALS: BP 118/77
[2020-02-17 02:00] VITALS: BP 98/66
[2020-02-17 06:08] LABS: BASO # 0.1 x10^3/uL (0.0-0.2); BASO % 1 % (0-3); EOS # 0.1 x10^3/uL (0.0-0.7); EOS % 1 % (0-3); HEMATOCRIT 35.5 % (36.0-47.0); HEMOGLOBIN 12.1 g/dL (12.0-15.5); LYMPH # 2.2 x10^3/uL (1.0-4.8); LYMPH % 21 % (24-48); MEAN CORPUSCULAR HEMOGLOBIN 31 pg (25-35); MEAN CORPUSCULAR HGB CONC 34 g/dL (31-37); MEAN CORPUSCULAR VOLUME 91 fL (79-100); MONO # 0.8 x10^3/uL (0.0-1.1); MONO % 8 % (0-9); NEUT # 7.6 x10^3/uL (1.8-7.7); NEUT % 71 % (31-73); PLATELET COUNT 156 x10^3/uL (140-400); RED BLOOD COUNT 3.89 x10^6/uL (3.50-5.40); RED CELL DISTRIBUTION WIDTH 13.1 % (11.5-14.5); WHITE BLOOD COUNT 10.8 x10^3/uL (4.0-11.0)
[2020-02-17] MEDS: IBUPROFEN 400 MG TABLET. PO PRN (06:17)
[2020-02-17 06:19] VITALS: BP 102/70
[2020-02-17] MEDS ORDERED: MULTIVITAMIN with MINERAL TABLET. PO SCH (09:00)
[2020-02-17 10:23] VITALS: BP 93/56
--- NOTE | 2020-02-17 13:25 | PDOC ---
OB Progress Note Date of Service 02/17/20 Time of Evaluation 1320 Notes PT. feeling well. No complaints. Lab Laboratory Tests Test 02/16/20 09:40 02/16/20 10:00 02/16/20 10:15 02/17/20 05:40 Urine Collection Type Unknown Urine Color Yellow Urine Clarity Clear Urine pH 7.0 (<5.0-8.0) Urine Specific [place] <=1.005 (1.000-1.030) Urine Protein Negative mg/dL (NEG-TRACE) Urine Glucose (UA) Negative mg/dL (NEG) Urine Ketones (Stick) 15 mg/dL (NEG) Urine Blood Moderate (NEG) Urine Nitrite Negative (NEG) Urine Bilirubin Negative (NEG) Urine Urobilinogen Dipstick 0.2 mg/dL (0.2 mg/dL) Urine Leukocyte Esterase Small (NEG) Urine Opiates Screen Neg (NEG) Urine Methadone Screen Neg (NEG) Urine Barbiturates Neg (NEG) Urine Phencyclidine Screen Neg (NEG) Urine Amphetamine/Methamphetamine Neg (NEG) Urine Benzodiazepines Screen Neg (NEG) Urine Cocaine Screen Neg (NEG) Urine Cannabinoids Screen Neg (NEG) Urine Ethyl Alcohol Neg (NEG) White Blood Count 9.9 x10^3/uL (4.0-11.0) 10.8 x10^3/uL (4.0-11.0) Red Blood Count 4.14 x10^6/uL (3.50-5.40) 3.89 x10^6/uL (3.50-5.40) Hemoglobin 13.1 g/dL (12.0-15.5) 12.1 g/dL (12.0-15.5) Hematocrit 37.4 % (36.0-47.0) 35.5 % (36.0-47.0) Mean Corpuscular Volume 90 fL (79-100) 91 fL (79-100) Mean Corpuscular Hemoglobin 32 pg (25-35) 31 pg (25-35) Mean Corpuscular Hemoglobin Concent 35 g/dL (31-37) 34 g/dL (31-37) Red Cell Distribution Width 13.1 % (11.5-14.5) 13.1 % (11.5-14.5) Platelet Count 165 x10^3/uL (140-400) 156 x10^3/uL (140-400) Neutrophils (%) (Auto) 72 % (31-73) 71 % (31-73) Lymphocytes (%) (Auto) 20 % (24-48) 21 % (24-48) Monocytes (%) (Auto) 7 % (0-9) 8 % (0-9) Eosinophils (%) (Auto) 0 % (0-3) 1 % (0-3) Basophils (%) (Auto) 1 % (0-3) 1 % (0-3) Neutrophils # (Auto) 7.2 x10^3/uL (1.8-7.7) 7.6 x10^3/uL (1.8-7.7) Lymphocytes # (Auto) 1.9 x10^3/uL (1.0-4.8) 2.2 x10^3/uL (1.0-4.8) Monocytes # (Auto) 0.7 x10^3/uL (0.0-1.1) 0.8 x10^3/uL (0.0-1.1) Eosinophils # (Auto) 0.0 x10^3/uL (0.0-0.7) 0.1 x10^3/uL (0.0-0.7) Basophils # (Auto) 0.1 x10^3/uL (0.0-0.2) 0.1 x10^3/uL (0.0-0.2) Coronavirus (COVID-19)(PCR) Negative (NEGATIVE) Laboratory Tests Test 02/17/20 05:40 White Blood Count 10.8 x10^3/uL (4.0-11.0) Red Blood Count 3.89 x10^6/uL (3.50-5.40) Hemoglobin 12.1 g/dL (12.0-15.5) Hematocrit 35.5 % (36.0-47.0) Mean Corpuscular Volume 91 fL (79-100) Mean Corpuscular Hemoglobin 31 pg (25-35) Mean Corpuscular Hemoglobin Concent 34 g/dL (31-37) Red Cell Distribution Width 13.1 % (11.5-14.5) Platelet Count 156 x10^3/uL (140-400) Neutrophils (%) (Auto) 71 % (31-73) Lymphocytes (%) (Auto) 21 % (24-48) Monocytes (%) (Auto) 8 % (0-9) Eosinophils (%) (Auto) 1 % (0-3) Basophils (%) (Auto) 1 % (0-3) Neutrophils # (Auto) 7.6 x10^3/uL (1.8-7.7) Lymphocytes # (Auto) 2.2 x10^3/uL (1.0-4.8) Monocytes # (Auto) 0.8 x10^3/uL (0.0-1.1) Eosinophils # (Auto) 0.1 x10^3/uL (0.0-0.7) Basophils # (Auto) 0.1 x10^3/uL (0.0-0.2) Medications Current Medications Sodium Chloride (Normal Saline Flush) 3 ml QSHIFT PRN IV AFTER MEDS AND BLOOD DRAWS; Start 02/16/20 at 10:00; Stop 02/17/20 at 11:07; Status DC Ringer's Solution 1,000 ml @ 125 mls/hr Q8H IV Last administered on 02/16/20at 10:10; Start 02/16/20 at 09:53; Stop 02/17/20 at 08:09; Status DC Butorphanol Tartrate (Stadol) 1 mg PRN Q1HR PRN IVP mild to moderate labor pain; Start 02/16/20 at 10:00; Stop 02/17/20 at 08:09; Status DC Fentanyl Citrate (Fentanyl 2ml Vial) 50 mcg PRN Q30MIN PRN IVP Mild to moderate pain; Start 02/16/20 at 10:00; Stop 02/17/20 at 08:09; Status DC Fentanyl Citrate (Fentanyl 2ml Vial) 100 mcg PRN Q30MIN PRN IVP Severe pain Last administered on 02/16/20at 11:31; Start 02/16/20 at 10:00; Stop 02/17/20 at 08:09; Status DC Acetaminophen (Tylenol) 650 mg PRN Q6HRS PRN PO MILD PAIN / TEMP > 100.3'F; Start 02/16/20 at 10:00; Stop 02/17/20 at 08:09; Status DC Ondansetron HCl (Zofran) 4 mg PRN Q4HRS PRN IVP NAUSEA/VOMITING; Start 02/16/20 at 10:00; Stop 02/17/20 at 11:07; Status DC Terbutaline Sulfate (Brethine) 0.25 mg 1X PRN PRN SQ SEE COMMENTS; Start 02/16/20 at 10:00; Stop 02/17/20 at 08:09; Status DC Lidocaine HCl (Xylocaine 1% Pf 30ml Vial) 30 ml 1X PRN PRN INJ SEE COMMENTS Last administered on 02/16/20at 11:31; Start 02/16/20 at 10:00; Stop 02/17/20 at 08:09; Status DC Oxytocin/Sodium Chloride 500 ml @ 0 mls/hr CONT PRN IV SEE I/O RECORD; Start 02/16/20 at 10:00; Stop 02/17/20 at 08:09; Status DC Oxytocin/Sodium Chloride 500 ml @ 0 mls/hr CONT PRN PRN IV Post delivery bleeding; Start 02/16/20 at 10:00; Stop 02/17/20 at 08:09; Status DC Ibuprofen (Motrin) 800 mg PRN Q6HRS PRN PO PAIN; Start 02/16/20 at 10:00 Penicillin G Potassium [id number] unit/Dextrose 100 ml @ 100 mls/hr 1X ONCE IV Last administered on 02/16/20at 10:31; Start 02/16/20 at 11:00; Stop 02/17/20 at 08:09; Status DC Penicillin G Potassium [id number] unit/Dextrose 50 ml @ 100 mls/hr Q4H IV ; Start 02/16/20 at 15:00 Sodium Chloride (Normal Saline Flush) 10 ml QSHIFT PRN IV AFTER MEDS AND BLOOD DRAWS; Start 02/16/20 at 11:45; Stop 02/17/20 at 11:07; Status DC Oxytocin/Sodium Chloride 500 ml @ 62.5 mls/hr CONT PRN IV SEE I/O RECORD; Start 02/16/20 at 11:45; Stop 02/16/20 at 19:44; Status DC Acetaminophen (Tylenol) 650 mg PRN Q6HRS PRN PO MILD PAIN / TEMP > 100.3'F; Start 02/16/20 at 11:45 Ibuprofen (Motrin) 800 mg PRN Q8HRS PRN PO INFLAMMATION/PAIN PREVENTION Last administered on 02/17/20at 06:17; Start 02/16/20 at 11:45; Stop 02/17/20 at 08:09; Status DC Docusate Sodium (Colace) 100 mg PRN BID PRN PO HARD STOOL; Start 02/16/20 at 11:45 Magnesium Hydroxide (Milk Of Magnesia) 2,400 mg PRN DAILY PRN PO CONSTIPATION; Start 02/16/20 at 11:45 Al Hydroxide/Mg Hydroxide (Mylanta Plus Xs) 30 ml PRN Q4HRS PRN PO HEARTBURN / GAS; Start 02/16/20 at 11:45 Simethicone (Gas-X) 80 mg PRN AFTMEALHC PRN PO GAS / BLOATING; Start 02/16/20 at 11:45 Diphenhydramine HCl (Benadryl) 25 mg PRN Q6HRS PRN PO ITCHING; Start 02/16/20 at 11:45 Benzocaine (Americaine) 1 spray PRN QID PRN TP TOPICAL PAIN; Start 02/16/20 at 11:45 Phenyleph/Shark Oil/Min Oil/Petrol (Preparation H) 1 darshan PRN QID PRN RC RECTAL PAIN; Start 02/16/20 at 11:45 Hydrocortisone (Cortaid) 1 darshan PRN QID PRN TP PERINEAL PAIN; Start 02/16/20 at 11:45 Ferrous Sulfate (Feosol) 325 mg BIDWMEALS PO ; Start 02/16/20 at 17:00; Stop 02/17/20 at 11:07; Status DC Zolpidem Tartrate (Ambien) 5 mg PRN QHS PRN PO INSOMNIA, MAY REPEAT X1; Start 02/16/20 at 11:45 Info (Do NOT chart on this placeholder) 1 ea 1X PRN PRN MC SEE COMMENTS; Start 02/16/20 at 11:45 Info (Do NOT chart on this placeholder) 1 ea 1X PRN PRN MC SEE COMMENTS; Start 02/16/20 at 11:45; Stop 02/17/20 at 08:09; Status DC Oxycodone/ Acetaminophen (Percocet 5/325) 2 tab PRN Q4HRS PRN PO MODERATE PAIN, SEVERE PAIN Last administered on 02/16/20at 20:07; Start 02/16/20 at 11:45 Multivitamins (Thera M Plus) 1 tab DAILY PO ; Start 02/17/20 at 09:00 Oxytocin/Sodium Chloride (Oxytocin Premix Infusion) 30 unit STK-MED ONCE IV ; Start 02/16/20 at 11:30; Stop 02/17/20 at 08:28; Status DC Active Scripts Active Tablet (Pnv Cmb#95/Ferrous Fumarate/Fa) 1 Each Tablet 1 Tab PO DAILY Ibuprofen 400 Mg Tablet 800 Mg PO PRN Q8HRS PRN Flonase Allergy Relief (Fluticasone Propionate) 9.9 Ml [place].susp 2 Sprays NS DAILY Exam Abd: soft, non tender, fundus firm Assessment PPD#1 s/p Plan of Care: Continue current Tx, Mgmt MARY PICHARDO Jr, MD Feb 17, 2020 13:25
[2020-02-17 16:54] VITALS: BP 98/58
[2020-02-17 20:00] VITALS: BP 95/64
[2020-02-18 02:00] VITALS: BP 99/57
[2020-02-18] MEDS: IBUPROFEN 400 MG TABLET. PO PRN ×2 (08:27→14:43)
[2020-02-18 08:47] VITALS: BP 105/62
--- NOTE | 2020-02-18 12:08 | PDOC3 ---
OB DISCHARGE SUMMARY DATE OF ADMISSION: 02/16/20 DATE OF DISCHARGE: 02/18/20 REASON FOR ADMISSION: Onset of labor INTRAPARTUM PROCEDURES: Spontanous Vag Deliv DISCHARGE DIAGNOSIS: Term Delivered DISCHARGE INFORMATION: Activity (ad charis), Diet (regular diet), Instructions (pelvic rest x 6 wks) HOSPITAL COURSE Term gestation delivered vaginally without complications. MARY PICHARDO Jr, MD Feb 18, 2020 12:08
[2020-02-18] MEDS ORDERED: IBUP-1027 PO (12:10)
--- NOTE | 2020-02-18 12:10 | DISCH ---
DISCHARGE INSTRUCTIONS Condition on Discharge Condition on Discharge: Stable Activity After Discharge Activity Instructions for Disc: Avoid exertion Bathing Instructions: No Tub Bath until see Lifting Instructions after Dis: No heavy lifting, No pulling or pushing Driving Instructions after Dis: Do not drive today Weight Bearing Status after Di: As tolerated Diet after Discharge Diet after Discharge: Regular Contacting the after DC Call your doctor for: Concerns you may have Follow-Up Follow up with: Dr. Pappas in 6 wks MARY PAPPAS Jr, MD Feb 18, 2020 12:10
--- NOTE | 2020-02-18 14:11 | NUR ---
Discharge Discharge instructions given to patient at this time by nurse companion phone, no questions or concerns. To follow up in [address] Pappas. Waiting for transportation, will continue to monitor.
== END 2020-02-18 15:52 | disposition home or self-care (01) ==
LOC: 3 SO LND 09:16 → OBSVTOIN 09:16 → INTOOBSV 09:16 → 3 NORTH 18:37 → 3 SO LND 18:41 → 3 NORTH 18:55
PROVIDERS: ADMIT Obstetrics & Gynecology; ATTEND Obstetrics & Gynecology
DX: O80 Encounter for full-term uncomplicated delivery (principal); Z20.828 Contact with and (suspected) exposure to other viral communicable diseases; O70.1 Second degree perineal laceration during delivery; O99.824 Streptococcus B carrier state complicating childbirth; Z3A.38 38 weeks gestation of pregnancy; Z79.899 Other long term (current) drug therapy; Z37.0 Single live birth
CPT/HCPCS: 36415; 80307; 81003; 85025; 86850; 86900; 86901; 96365; 96375; 96376; G0378; G0379; J2540; J2590; J3010; J3490; J7060; J7120; U0003